=== PATIENT | female | born 1970 | race Caucasian/White ===

== ENCOUNTER → 2016-02-26 | Outpatient (CLI) | payer MEDICARE, OTHER ==
[~2016-02-26] MED LIST: ADVAIR HFA120 INHAL1 IH; ALPRAZOLAM0.5 MG PO; AMITRIPTYLINE H25 MG PO; APRI1 EACH PO; ATENOLOL 25 MG TABLE PO; BUTALB-APAP-CA1 EACH PO; CELEBREX200 MG PO; CHERATUSSIN AC473 ML; CHERATUSSIN DA473 ML PO; CITALOPRAM HBR40 MG PO; CYCLOBENZAPRINE 10 M PO; FERREX 150150 MG PO; Feosol PO; GABAPENTIN300 MG; LAMICTAL100 MG PO; LEVOTHYROXINE125 MCG PO; LEXAPRO20 MG PO; LORATADINE10 M2 PO; METHOCARBAMOL500 MG PO; MULTIPLE VITAM1 EACH PO; NUCYNTA ER50 MG PO; Neurontin PO; PREDNISONE20 MG PO; PREDNISONE5 MG PO; Protonix; RITUXAN10 MG/ML IV; SKELAXIN800 MG PO; SYMBICORT60 INHALAT IH; SYNTHROID150 MCG PO; TAPENTADOL PO; TOLTERODINE 4 MG PO; TRAMADOL HCL50 MG PO; VENTOLIN HFA18 GM IH; VITAMIN B12 IM; XANAX1 MG PO; XOPENEX1.25 MG/3 IH
== END | disposition home or self-care (01) ==
LOC: CDC 13:56
DX: Z01.810 Encounter for preprocedural cardiovascular examination (principal); M19.041 Primary osteoarthritis, right hand; M79.641 Pain in right hand; G56.01 Carpal tunnel syndrome, right upper limb; M65.311 Trigger thumb, right thumb
CPT/HCPCS: 93000

== ENCOUNTER 2016-03-09 10:46 | Day surgery (SDC) | payer OTHER ==
[~2016-03-09] VITALS: Ht 177.8 cm; Wt 88.0 kg
[2016-03-09 11:46] VITALS: BP 122/66
[2016-03-09 12:20] LABS: METH RESISTANT S AUREUS PCR POSITIVE (NEGATIVE)
[2016-03-09 12:21] LABS: PROBE CHECK PASS
[2016-03-09 16:35] VITALS: BP 126/71
[2016-03-09 17:40] VITALS: BP 110/70
[2016-03-09 18:18] VITALS: BP 105/70
== END 2016-03-09 18:24 | disposition home or self-care (01) ==
LOC: SDC 10:46
PROVIDERS: Orthopaedic Surgery Hand Surgery
DX: M18.11 Unilateral primary osteoarthritis of first carpometacarpal joint, right hand (principal); G56.01 Carpal tunnel syndrome, right upper limb; M65.311 Trigger thumb, right thumb; I10 Essential (primary) hypertension; F32.9 Major depressive disorder, single episode, unspecified; D64.9 Anemia, unspecified; M06.9 Rheumatoid arthritis, unspecified; J45.909 Unspecified asthma, uncomplicated; E34.0 Carcinoid syndrome; F41.9 Anxiety disorder, unspecified; Z79.52 Long term (current) use of systemic steroids; Z98.1 Arthrodesis status; Z82.5 Family history of asthma and other chronic lower respiratory diseases; Z83.3 Family history of diabetes mellitus
CPT/HCPCS: 87641; C1769; J1170; J1720; J2405; J3010; J3370; S0020

== ENCOUNTER 2017-09-15 20:48 | Inpatient (IN) | payer OTHER ==
[~2017-09-15] VITALS: Ht 175.3 cm; Wt 76.8 kg
[~2017-09-15 20:48] MED LIST changes: +RITUXAN10 MG/1 ML IV; -RITUXAN10 MG/ML IV
[2017-09-15 21:51] LABS: HEMATOCRIT 35.4 % (36.0-46.0); HEMOGLOBIN 11.1 G/DL (11.9-15.5); MCHC 31.4 G/DL (30.0-36.0); MCV 73.3 FL (83-99); PLATELET COUNT 200 K/uL (156-360); RBC DIS.WIDTH-CV 19.8 % (11.8-14.6); RBC DIS.WIDTH-SD 51.2 % (39-53); RED BLOOD COUNT 4.83 M/uL (3.80-5.20); WHITE BLOOD COUNT 11.4 K/uL (4.1-10.2)
[2017-09-15 22:05] LABS: APPEARANCE SL.HAZY ((CLEAR)); BILIRUBIN NEGATIVE; BLOOD NEGATIVE; COLOR AMBER ((YELLOW)); GLUCOSE (STRIP) NEGATIVE; KETONES 5; LEUKOCYTES MODERATE; NITRITE NEGATIVE; PROTEIN (STRIP) 30; SPECIFIC GRAVITY 1.021 (1.000-1.030)
[2017-09-15 22:15] LABS: ALBUMIN 3.8 G/DL (3.2-4.8); CHLORIDE 103 MEQ/L (99-109); POTASSIUM 3.3 MEQ/L (3.7-5.4); SODIUM 139 MEQ/L (136-147); TOTAL BILIRUBIN 0.6 MG/DL (0.0-1.0)
[2017-09-15 22:18] LABS: BACTERIA RARE /HPF; EPITHELIAL CELLS 1+ /HPF; MUCUS TRACE /LPF; RED BLOOD CELLS 0-5 /HPF (0-5); UCUL ADDED? YES
[2017-09-15 22:20] LABS: ALKALINE PHOSPHATASE 96 IU/L (3-129); ALT (GPT) 21 IU/L (3-49); AST (GOT) 35 IU/L (2-34); CREATININE 0.7 MG/DL (0.6-1.3); GFR ESTIMATE (CALCULATED) > 59 mL/min/; GLUCOSE 96 mg/dL (70-99); LIPASE 16 U/L (1.0-51.0); TOTAL PROTEIN 6.1 G/DL (6.4-8.3); UREA NITROGEN (BUN) 11 mg/dL (9-23)
[2017-09-15] MEDS ORDERED: VITAMIN D2000 UNIT PO (23:04)
[2017-09-15] MEDS ORDERED: LYRICA75 MG PO (23:04)
[2017-09-15] MEDS ORDERED: MOBIC15 MG PO (23:04)
[2017-09-15] MEDS ORDERED: VALTREX50 MG/ML PO (23:05)
[2017-09-15] MEDS ORDERED: IRON INFUSION IV (23:08)
[2017-09-16 02:45] VITALS: BP 108/64
[2017-09-16 05:48] LABS: HEMOGLOBIN 11.1 G/DL (11.9-15.5); MCH 22.6 PG (29.0-34.0); MCV 75.2 FL (83-99); PLATELET COUNT 216 K/uL (156-360); RBC DIS.WIDTH-CV 20.3 % (11.8-14.6); RBC DIS.WIDTH-SD 53.7 % (39-53); RED BLOOD COUNT 4.92 M/uL (3.80-5.20); WHITE BLOOD COUNT 6.9 K/uL (4.1-10.2)
[2017-09-16 06:15] LABS: TROP-I INTERPRETATION NEGATIVE; TROPONIN-I < 0.01 ng/mL (0.0-0.30)
[2017-09-16 07:06] LABS: ABS NEUTROPHIL COUNT 5.3; ATYPICAL LYMPHOCYTE 3.5 %; BAND NEUTROPHILS 4.4 % (0-8.0); EOSINOPHIL ABS CT 0; LYMPHOCYTES 18.4 % (15.0-45.0); MONOCYTES 0.9 % (0-9.0); MYELOCYTES 0.9 %; SEG.NEUTROPHILS 71.9 % (46.0-76.0); SMUDGE CELLS 57.9
[2017-09-16 07:23] VITALS: BP 120/60
[2017-09-16 11:09] VITALS: BP 117/65
[2017-09-16 13:18] LABS: TROP-I INTERPRETATION NEGATIVE; TROPONIN-I < 0.01 ng/mL (0.0-0.30)
[2017-09-16 15:16] VITALS: BP 124/69
[2017-09-17 00:35] VITALS: BP 128/84
[2017-09-17 06:05] LABS: HEMATOCRIT 35.4 % (36.0-46.0); HEMOGLOBIN 10.6 G/DL (11.9-15.5); MCH 22.6 PG (29.0-34.0); MCHC 29.9 G/DL (30.0-36.0); MCV 75.3 FL (83-99); RBC DIS.WIDTH-SD 53.4 % (39-53); WHITE BLOOD COUNT 20.8 K/uL (4.1-10.2)
[2017-09-17 06:08] LABS: PLATELET COUNT 296 K/uL (156-360)
[2017-09-17 06:41] LABS: ALBUMIN 3.8 G/DL (3.2-4.8); ALKALINE PHOSPHATASE 89 IU/L (3-129); ALT (GPT) 21 IU/L (3-49); AST (GOT) 25 IU/L (2-34); CHLORIDE 108 MEQ/L (99-109); CREATININE 0.7 MG/DL (0.6-1.3); GFR ESTIMATE (CALCULATED) > 59 mL/min/; GLUCOSE 93 mg/dL (70-99); SODIUM 144 MEQ/L (136-147); TOTAL PROTEIN 5.7 G/DL (6.4-8.3); UREA NITROGEN (BUN) 14 mg/dL (9-23)
[2017-09-17 06:49] LABS: POTASSIUM 4.1 MEQ/L (3.7-5.4); TOTAL BILIRUBIN 0.4 MG/DL (0.0-1.0)
[2017-09-17 07:34] VITALS: BP 122/63
[2017-09-17 15:33] VITALS: BP 143/92
[2017-09-17 23:14] VITALS: BP 138/76
[2017-09-18 06:06] LABS: HEMATOCRIT 36.2 % (36.0-46.0); HEMOGLOBIN 10.7 G/DL (11.9-15.5); MCH 22.4 PG (29.0-34.0); MCHC 29.6 G/DL (30.0-36.0); MCV 75.7 FL (83-99); PLATELET COUNT 266 K/uL (156-360); RBC DIS.WIDTH-CV 20.2 % (11.8-14.6); RED BLOOD COUNT 4.78 M/uL (3.80-5.20); WHITE BLOOD COUNT 9.1 K/uL (4.1-10.2)
[2017-09-18 06:32] LABS: CHLORIDE 104 MEQ/L (99-109); CREATININE 0.6 MG/DL (0.6-1.3); GFR ESTIMATE (CALCULATED) > 59 mL/min/; GLUCOSE 135 mg/dL (70-99); SODIUM 144 MEQ/L (136-147); UREA NITROGEN (BUN) 14 mg/dL (9-23)
[2017-09-18 07:19] VITALS: BP 115/80
[2017-09-18 15:03] VITALS: BP 165/84
[2017-09-18 23:18] VITALS: BP 132/72
[2017-09-19 05:50] LABS: HEMATOCRIT 34.9 % (36.0-46.0); HEMOGLOBIN 10.5 G/DL (11.9-15.5); MCH 22.6 PG (29.0-34.0); MCHC 30.1 G/DL (30.0-36.0); MCV 75.1 FL (83-99); PLATELET COUNT 252 K/uL (156-360); RBC DIS.WIDTH-CV 20.2 % (11.8-14.6); RBC DIS.WIDTH-SD 54.1 % (39-53); RED BLOOD COUNT 4.65 M/uL (3.80-5.20); WHITE BLOOD COUNT 8.6 K/uL (4.1-10.2)
[2017-09-19 06:16] LABS: ALBUMIN 3.6 G/DL (3.2-4.8); CHLORIDE 103 MEQ/L (99-109); CREATININE 0.7 MG/DL (0.6-1.3); GFR ESTIMATE (CALCULATED) > 59 mL/min/; PHOSPHORUS 2.6 mg/dL (2.5-4.9); POTASSIUM 3.8 MEQ/L (3.7-5.4); SODIUM 144 MEQ/L (136-147); UREA NITROGEN (BUN) 13 mg/dL (9-23)
[2017-09-19 06:18] LABS: GLUCOSE 92 mg/dL (70-99)
[2017-09-19 07:30] VITALS: BP 114/67
[2017-09-19] MEDS ORDERED: PREDNISONE10 MG PO (13:10)
[2017-09-19] MEDS ORDERED: LEVOTHYROXINE175 MCG PO (14:23)
[2017-09-19 15:14] VITALS: BP 137/81
[2017-09-20 12:14] LABS: Neutrophil Cytoplasmic Aby P-ANCA POS
== END 2017-09-19 18:26 | disposition home or self-care (01) | DRG 543 ==
LOC: EME 20:48 → RME 20:48 → 5SOUTH 09-16 00:15 → EDOF 09-16 00:15 → ENRESERV 09-16 00:18 → 5SOUTH 09-16 02:17
PROVIDERS: Hospitalist; Internal Medicine; Internal Medicine Gastroenterology; Physician Assistant; Physician Assistant Medical
DX: M30.1 Polyarteritis with lung involvement [Churg-Strauss] (principal); N39.0 Urinary tract infection, site not specified; F33.9 Major depressive disorder, recurrent, unspecified; M30.0 Polyarteritis nodosa; G62.9 Polyneuropathy, unspecified; F17.210 Nicotine dependence, cigarettes, uncomplicated; G89.4 Chronic pain syndrome; I10 Essential (primary) hypertension; E03.9 Hypothyroidism, unspecified; F12.90 Cannabis use, unspecified, uncomplicated; J45.909 Unspecified asthma, uncomplicated; K57.90 Diverticulosis of intestine, part unspecified, without perforation or abscess without bleeding; N28.1 Cyst of kidney, acquired; Z96.653 Presence of artificial knee joint, bilateral; K29.60 Other gastritis without bleeding; K64.8 Other hemorrhoids; M19.90 Unspecified osteoarthritis, unspecified site; R31.9 Hematuria, unspecified; R63.0 Anorexia; R63.4 Abnormal weight loss; Z79.52 Long term (current) use of systemic steroids; Z98.1 Arthrodesis status; Z88.2 Allergy status to sulfonamides; Z88.5 Allergy status to narcotic agent; Z68.25 Body mass index [BMI] 25.0-25.9, adult; Z79.51 Long term (current) use of inhaled steroids
CPT/HCPCS: 71046; 80048; 80053; 80069; 81003; 83690; 84484; 85025; 85027; 86021 90; 86038; 87086; 87493; 88305; 88342 TC; 94640; 99281; 99285; J0696; J1650; J2250; J2270; J2405; J2765; J2930; J3010; J3480; J7030; J7050; J7512

== ENCOUNTER 2017-09-21 19:45 | Emergency (ER) | payer OTHER ==
[~2017-09-21] VITALS: Ht 170.2 cm; Wt 73.8 kg
[~2017-09-21 19:45] MED LIST changes: +IRON INFUSION IV; +LEVOTHYROXINE175 MCG PO; +LYRICA75 MG PO; +MOBIC15 MG PO; +PREDNISONE10 MG PO; +VALTREX50 MG/ML PO; +VITAMIN D2000 UNIT PO
[2017-09-21 20:39] LABS: ALBUMIN 4.3 g/dL (3.2-4.8); CHLORIDE 98 mEq/L (99-109); POTASSIUM 3.2 mEq/L (3.7-5.4); SODIUM 141 mEq/L (136-147)
[2017-09-21 20:41] LABS: GLUCOSE 113 mg/dL (70-99)
[2017-09-21 20:42] LABS: TOTAL PROTEIN 6.8 g/dL (6.4-8.3)
[2017-09-21 20:43] LABS: TOTAL BILIRUBIN 0.9 mg/dL (0.0-1.0)
[2017-09-21 20:45] LABS: ALKALINE PHOSPHATASE 97 IU/L (3-129); CREATININE 0.8 mg/dL (0.6-1.3); GFR ESTIMATE (CALCULATED) > 59 mL/min/
[2017-09-21 20:46] LABS: HEMATOCRIT 43.2 % (36.0-46.0); MCH 22.8 PG (29.0-34.0); MCV 73.3 FL (83-99); PLATELET COUNT 299 K/uL (156-360); RBC DIS.WIDTH-CV 21.2 % (11.8-14.6); RBC DIS.WIDTH-SD 52.1 % (39-53); UREA NITROGEN (BUN) 11 mg/dL (9-23)
[2017-09-21 20:47] LABS: AST (GOT) 43 IU/L (2-34)
[2017-09-21 20:48] LABS: ALT (GPT) 44 IU/L (3-49)
[2017-09-21 20:54] LABS: QUANTITATIVE HCG 11.9 MIU/ML
[2017-09-21 21:25] LABS: HEMOGLOBIN 13.4 G/DL (11.9-15.5); RED BLOOD COUNT 5.89 M/uL (3.80-5.20)
[2017-09-21 22:00] LABS: LIPASE 18 U/L (1.0-51.0)
[2017-09-21 22:05] LABS: APPEARANCE CLOUDY ((CLEAR)); BILIRUBIN NEGATIVE; BLOOD NEGATIVE; COLOR AMBER ((YELLOW)); GLUCOSE (STRIP) NEGATIVE; KETONES 20; LEUKOCYTES LARGE; NITRITE NEGATIVE; PROTEIN (STRIP) 30; SPECIFIC GRAVITY 1.019 (1.000-1.030)
[2017-09-21 22:25] LABS: TROP-I INTERPRETATION NEGATIVE; TROPONIN-I < 0.01 ng/mL (0.0-0.30)
[2017-09-21 22:35] LABS: BACTERIA 1+ /HPF; EPITHELIAL CELLS 4+ /HPF; MUCUS 4+ /LPF; RED BLOOD CELLS 30-40 /HPF (0-5); UCUL ADDED? YES; URIC ACID CRYSTALS 3+ /HPF; WHITE BLOOD CELLS TNTC /HPF (0-5)
[2017-09-21 23:17] LABS: THYROTROPIN (TSH) 1.7 MIU/L (0.4-5.5)
[2017-09-22] VITALS (7 sets, daily range): BP systolic 90–117; BP diastolic 51–84
[2017-09-23 03:42] VITALS: BP 107/62
[2017-09-23 05:59] LABS: HEMATOCRIT 31.8 % (36.0-46.0); HEMOGLOBIN 9.3 G/DL (11.9-15.5); MCH 22.6 PG (29.0-34.0); MCHC 29.2 G/DL (30.0-36.0); MCV 77.4 FL (83-99); RBC DIS.WIDTH-CV 20.6 % (11.8-14.6); RBC DIS.WIDTH-SD 57.4 % (39-53); RED BLOOD COUNT 4.11 M/uL (3.80-5.20); WHITE BLOOD COUNT 8.6 K/uL (4.1-10.2)
[2017-09-23 06:43] LABS: ALBUMIN 2.8 G/DL (3.2-4.8); ALT (GPT) 24 IU/L (3-49); AST (GOT) 29 IU/L (2-34); CHLORIDE 102 MEQ/L (99-109); CREATININE 0.8 MG/DL (0.6-1.3); GFR ESTIMATE (CALCULATED) > 59 mL/min/; GLUCOSE 90 mg/dL (70-99); POTASSIUM 3.6 MEQ/L (3.7-5.4); SODIUM 137 MEQ/L (136-147); UREA NITROGEN (BUN) 8 mg/dL (9-23)
[2017-09-23 06:45] LABS: ALKALINE PHOSPHATASE 51 IU/L (3-129); TOTAL BILIRUBIN 0.5 MG/DL (0.0-1.0); TOTAL PROTEIN 4.1 G/DL (6.4-8.3)
[2017-09-23 06:59] LABS: PLAT.SUFFICIENCY ADEQUATE
[2017-09-23 07:23] LABS: PLATELET COUNT 180 K/uL (156-360)
[2017-09-23 08:20] VITALS: BP 100/65
[2017-09-23] MEDS ORDERED: TRAZODONE HCL50 MG PO (11:28)
[2017-09-23 16:37] VITALS: BP 103/56
[2017-09-23 19:43] VITALS: BP 104/56
[2017-09-24 00:15] VITALS: BP 110/62
[2017-09-24 04:38] VITALS: BP 115/62
[2017-09-24 06:31] LABS: HEMATOCRIT 38.6 % (36.0-46.0); MCH 22.8 PG (29.0-34.0); MCHC 29.3 G/DL (30.0-36.0); PLATELET COUNT 201 K/uL (156-360); RBC DIS.WIDTH-CV 20.9 % (11.8-14.6); RBC DIS.WIDTH-SD 58.8 % (39-53)
[2017-09-24 06:33] LABS: HEMOGLOBIN 11.3 G/DL (11.9-15.5); RED BLOOD COUNT 4.95 M/uL (3.80-5.20)
[2017-09-24 06:45] LABS: CHLORIDE 102 MEQ/L (99-109); CREATININE 0.9 MG/DL (0.6-1.3); GFR ESTIMATE (CALCULATED) > 59 mL/min/; GLUCOSE 88 mg/dL (70-99); POTASSIUM 3.5 MEQ/L (3.7-5.4); SODIUM 142 MEQ/L (136-147); UREA NITROGEN (BUN) 4 mg/dL (9-23)
[2017-09-24 06:50] VITALS: BP 118/75
[2017-09-24] MEDS ORDERED: HYDROMORPHONE HC4 MG PO (12:32)
[2017-09-24] MEDS ORDERED: MORPHINE SULFAT15 M1 PO (12:32)
[2017-09-24] MEDS ORDERED: ZOFRAN4 MG PO (12:32)
[2017-09-24] MEDS ORDERED: PYRIDIUM100 MG PO (12:41)
[2017-09-24] MEDS ORDERED: AUGMENTIN875 MG PO (12:41)
[2017-09-24] MEDS ORDERED: MACROBID100 MG PO (12:41)
[2017-09-24] MEDS ORDERED: COLACE100 MG PO (12:41)
[2017-09-24 13:19] LABS: APPEARANCE CLEAR ((CLEAR)); BILIRUBIN NEGATIVE; BLOOD NEGATIVE; COLOR YELLOW ((YELLOW)); GLUCOSE (STRIP) NEGATIVE; KETONES NEGATIVE; LEUKOCYTES NEGATIVE; NITRITE NEGATIVE; PROTEIN (STRIP) NEGATIVE; SPECIFIC GRAVITY 1.009 (1.000-1.030); UCUL ADDED? NO; UROBILINOGEN 0.2 MG/DL (0.2-1.0)
== END 2017-09-24 16:55 | disposition home or self-care (01) ==
LOC: EME 19:45 → EDOF 09-22 02:00 → 2EAST 09-22 02:00 → EDOF 09-22 02:00 → 2EAST 09-22 03:32
PROVIDERS: Emergency Medicine; Physician Assistant Medical; Physician Assistant Surgical; Surgery
PROC: 0DTJ4ZZ Resection of Appendix, Percutaneous Endoscopic Approach (ICD-10-PCS; principal; 2017-09-22)
DX: K35.80 Unspecified acute appendicitis (principal); J82 Pulmonary eosinophilia, not elsewhere classified; M30.0 Polyarteritis nodosa; R07.9 Chest pain, unspecified; R06.02 Shortness of breath; R30.0 Dysuria; R10.2 Pelvic and perineal pain; M19.90 Unspecified osteoarthritis, unspecified site; N28.1 Cyst of kidney, acquired; R16.1 Splenomegaly, not elsewhere classified; M43.16 Spondylolisthesis, lumbar region; J45.909 Unspecified asthma, uncomplicated; Z88.2 Allergy status to sulfonamides; Z98.1 Arthrodesis status; Z96.653 Presence of artificial knee joint, bilateral; F17.210 Nicotine dependence, cigarettes, uncomplicated
CPT/HCPCS: 74177; 80048; 80053; 81003; 83690; 84443; 84484; 84702; 85027; 87040; 87086; 87641; 88304; 93005; 94640; 94799; 99281; 99285; G0378; J1100; J1170; J2250; J2270; J2405; J2543; J2765; J3010; J3480; J7030; J7040; J7050; J7512; P9045; S0074